=== PATIENT | female | born 1980 | race Caucasian/White ===

== ENCOUNTER 2019-11-02 15:41 | Emergency (ER) | payer OTHER ==
[~2019-11-02] VITALS: Ht 170.2 cm; Wt 95.3 kg
[2019-11-02 15:56] VITALS: BP 112/57
--- NOTE | 2019-11-02 16:09 | NUR ---
PT AMB TO BED 3.
[2019-11-02] MEDS ORDERED: ACETAMINOPHEN EXTRA STRENGTH 500 MG TAB PO ONE (16:20)
[2019-11-02] MEDS ORDERED: KETOROLAC 30 MG/ML VIAL IVP ONE (16:20)
[2019-11-02 16:59] LABS: ANION GAP 14.1 (8-16); CARBON DIOXIDE 27.2 mmol/L (21-32); CREATININE 1.1 mg/dL (0.6-1.3); POTASSIUM 4.3 mmol/L (3.5-5.1)
[2019-11-02 17:26] LABS: BASOPHILS % (AUTO) 0.3 % (0.0-2.0); EOSINOPHILS % (AUTO) 0.4 % (0.0-4.0); HEMATOCRIT 36.1 % (36-48); HEMOGLOBIN 11.6 g/dL (12.0-16.0); LYMPHOCYTES # (AUTO) 1.2 K/uL (2.5-16.5); LYMPHOCYTES % (AUTO) 32.1 % (20.5-51.1); MEAN CORPUSCULAR HEMOGLOBIN 30 pg (27-31); MEAN CORPUSCULAR HGB CONC 32 g/dL (33-37); MEAN CORPUSCULAR VOLUME 93.2 fL (80-94); MONOCYTES # (AUTO) 0.7 K/uL (0.8-1.0); MONOCYTES % (AUTO) 18.3 % (1.7-9.3); NEUTROPHILS # (AUTO) 1.8 K/uL (1.8-7.7); NEUTROPHILS % (AUTO) 48.9 % (42.2-75.2); PLATELET COUNT (AUTO) 282 K/uL (140-450); RED BLOOD CELL COUNT(AUTO) 3.87 MIL/uL (4.20-5.40); RED CELL DISTRIBUTION WIDTH 14.7 % (11.6-13.7); WHITE BLOOD COUNT (AUTO) 3.7 K/uL (4.8-10.8)
[2019-11-02 17:54] VITALS: BP 122/61
--- NOTE | 2019-11-02 17:55 | NUR ---
COVID-19 SWAB COLLECTED
--- NOTE | 2019-11-02 17:55 | NUR ---
Patient discharged with v/s stable. Written and verbal after care instructions given and explained. Patient alert, oriented and verbalized understanding of instructions. Ambulatory with steady gait. All questions addressed prior to discharge. ID band removed. Patient advised to follow up with PMD. Rx of TESSALON PERLES/ ALBUTEROL/MOTRIN given. Patient educated on indication of medication including possible reaction and side effects. Opportunity to ask questions provided and answered.
== END 2019-11-02 17:55 | disposition home or self-care (01) ==
LOC: MED 15:41
DX: U07.1 COVID-19 (principal); B34.9 Viral infection, unspecified; Z90.49 Acquired absence of other specified parts of digestive tract; Z98.890 Other specified postprocedural states
CPT/HCPCS: 36415; 71045; 80048; 81002; 81025; 84484; 85025; 93005; 96372; 99285; J1885; U0003; 96374

== ENCOUNTER 2019-11-14 11:37 | Emergency (ER) | payer OTHER ==
[~2019-11-14] VITALS: Ht 172.7 cm; Wt 113.4 kg
[2019-11-14 12:01] VITALS: BP 113/61
[2019-11-14 12:57] VITALS: BP 113/61
--- NOTE | 2019-11-14 12:58 | NUR ---
PT SEEN AND EVALUATED BY ERMD, PT LEFT WITHOUT DISCHARGE INSTRUCTIONS.
== END 2019-11-14 12:58 | disposition home or self-care (01) ==
LOC: MED 11:37
DX: U07.1 COVID-19 (principal); R53.83 Other fatigue; Z98.890 Other specified postprocedural states; Z90.49 Acquired absence of other specified parts of digestive tract
CPT/HCPCS: 99281